=== PATIENT | male | born 1995 | race Caucasian/White ===

== ENCOUNTER → 2020-11-27 | Outpatient (CLI) | payer OTHER ==
--- NOTE | 2020-11-28 12:13 | ECHO ---
DATE OF PROCEDURE: 11/27/2020 Age: 24 Gender: Male Height: 72 inches Weight: 215 pounds Body surface area: 2.2 m2 PATIENT LOCATION: Outpatient. REFERRING PHYSICIAN: Linda Rodríguez PA-C. INDICATION: Left ventricular hypertrophy (LVH). MEASUREMENTS: 2D Measurements: RV 4.2 cm LV 5.2 cm Septum 1.2 cm Posterior wall 1.2 cm Aortic Root 3.3 cm LA 4.1 cm LVEF 70% Doppler Measurements: AV 1.5 m/s LVOT 1.2 m/s LVOT diameter 2.2 cm MV-E 109, A 42, E/A ratio 2.6 Early mitral deceleration time 150 msec E prime medial 9, A prime medial 10, E prime lateral 22 Average E/E prime ratio 7/PCWP - 10 mmHg PV 0.8 m/s Pulmonary artery acceleration time 150 msec RVSP 30-35 mmHg IVC 2.4 cm COMMENTS: Sinus bradycardia without intraventricular conduction disturbance. Borderline concentric left ventricular hypertrophy with hyperkinetic wall motion. Mildly dilated left atrium, but currently normal Doppler assessment of LV diastolic function and estimated mean left atrial pressure. Borderline dilated right heart chambers with normal wall motion and Doppler evidence of mild pulmonary hypertension. Mildly dilated inferior vena cava with adequate to slightly reduced respiratory collapse against an elevated central venous pressure of approximately 10 mmHg. Normal aortic diameters. Three equal size aortic cusps with no stenosis or insufficiency. Normal appearing mitral valve apparatus and leaflet excursion with no posterior systolic buckling and only trace insufficiency. Normal appearing tricuspid valve with mild insufficiency (physiologic). No apparent intracardiac mass or pericardial effusion. MTDD
== END ==
LOC: M CARPUL 13:17
PROVIDERS: ATTEND Physician Assistant
DX: R03.0 Elevated blood-pressure reading, without diagnosis of hypertension (principal); I51.7 Cardiomegaly

== ENCOUNTER → 2020-12-27 | Outpatient (REF) | payer OTHER ==
[2020-12-27 14:21] LABS: ALBUMIN 4.4 GM/DL (3.2-5.2); ALT/SGPT 31 U/L (12-78); BILIRUBIN,TOTAL 1.3 MG/DL (0.2-1.0); BLOOD UREA NITROGEN 14 MG/DL (7-18); CALCIUM LEVEL 9.4 MG/DL (8.5-10.1); CARBON DIOXIDE LEVEL 26 MEQ/L (21-32); CHLORIDE LEVEL 107 MEQ/L (98-107); CREATININE FOR GFR 1.06 MG/DL (0.70-1.30); GLOMERULAR FILTRATION RATE > 60.0 (>60); GLUCOSE, FASTING 91 MG/DL (70-100); POTASSIUM SERUM 4.2 MEQ/L (3.5-5.1); SODIUM LEVEL 138 MEQ/L (136-145); TOTAL PROTEIN 7.1 GM/DL (6.4-8.2)
== END ==
LOC: M LAB REF 13:04
PROVIDERS: ATTEND Internal Medicine Pulmonary Disease
DX: I27.20 Pulmonary hypertension, unspecified (principal)

== ENCOUNTER → 2020-12-29 | Outpatient (CLI) | payer OTHER ==
[2020-12-29 13:19] LABS: BASO % 0.6 % (0.0-1.0); EOS # 0.1 10^3/uL (0.0-0.5); EOS % 0.8 % (0.0-3.0); HEMATOCRIT 48.3 % (42.0-52.0); HEMOGLOBIN 16.7 g/dl (13.5-17.5); LYMPH # 2.3 10^3/uL (1.5-5.0); MEAN CORPUSCULAR HEMOGLOBIN 29.3 pg (27.0-33.0); MEAN CORPUSCULAR HGB CONC 34.6 g/dl (32.0-36.5); MEAN CORPUSCULAR VOLUME 84.7 fl (80.0-96.0); MONO # 0.5 10^3/uL (0.0-0.8); NEUTROPHILS # 3.5 10^3/uL (1.5-8.5); NEUTROPHILS % 54.3 % (36.0-66.0); PLATELET COUNT, AUTOMATED 253 10^3/uL (150-450); WHITE BLOOD COUNT 6.4 10^3/uL (4.0-10.0)
== END ==
LOC: M LAB 12:51
PROVIDERS: ATTEND Internal Medicine Pulmonary Disease
DX: I27.20 Pulmonary hypertension, unspecified (principal)